=== PATIENT | male | born 1965 | race Caucasian/White ===

== ENCOUNTER 2017-11-07 15:49 | Inpatient (IN) | payer OTHER ==
[~2017-11-07] VITALS: Ht 180.3 cm; Wt 127.4 kg
[2017-11-07 16:03] VITALS: BP 132/98; PULSE 110; RESP 16; TEMP 98.9; O2SAT 98
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
[2017-11-07 17:55] VITALS: BP 136/90; PULSE 113; RESP 18; O2SAT 96
[2017-11-07] MEDS ORDERED: ONDANSETRON HCL 4 MG/2 ML VIAL IV PUSH ONE (18:30)
[2017-11-07] MEDS ORDERED: MORPHINE SULFATE 4 MG/ML INJ IV PUSH ONE (18:30)
[2017-11-07 18:43] LABS: AUTOMATED NEUTROPHIL # 19.5 TH/MM3 (1.8-7.7); BASOPHIL % 0.1 % (0.0-2.0); EOSINOPHIL % 0.1 % (0.0-4.0); HEMATOCRIT 46.4 % (39.0-51.0); HEMOGLOBIN 15.7 GM/DL (13.0-17.0); LYMPH % 5.8 % (9.0-44.0); LYMPHOCYTE # 1.3 TH/MM3 (1.0-4.8); MEAN CELL VOLUME 87.8 FL (80.0-100.0); MEAN CORPUSCULAR HEMOGLOBIN 29.7 PG (27.0-34.0); MEAN CORPUSCULAR HGB CONC 33.8 % (32.0-36.0); MEAN PLATELET VOLUME 9.5 FL (7.0-11.0); MONO % 6.9 % (0.0-8.0); MONOCYTE # 1.6 TH/MM3 (0-0.9); NEUT % 87.1 % (16.0-70.0); PLATELET COUNT 206 TH/MM3 (150-450); RED BLOOD COUNT 5.28 MIL/MM3 (4.50-5.90); WHITE BLOOD COUNT 22.5 TH/MM3 (4.0-11.0)
[2017-11-07 18:52] LABS: PROTHROMBIN TIME - PATIENT 10.2 SEC (9.8-11.6)
[2017-11-07 19:10] LABS: BICARBONATE 29.5 MEQ/L (21.0-32.0); CALCIUM 9.5 MG/DL (8.5-10.1); CREATININE 1.1 MG/DL (0.60-1.30)
[2017-11-07 19:27] VITALS: BP 160/88; PULSE 110; RESP 20; O2SAT 97
[2017-11-07] MEDS ORDERED: SODIUM CHLOR 0.9% 1000 ML INJ 1,000 ML IV ONE (19:30)
[2017-11-07] MEDS ORDERED: IOHEXOL 350 MG/ML 10 ML VIAL (for RAD DIAG) IVCONTRAST ONE (20:51)
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
[2017-11-07] MEDS ORDERED: MORPHINE SULFATE 2 MG/ML INJ IV PUSH PRN (21:15)
[2017-11-07] MEDS ORDERED: Post-op Orders (for Pharmacy) XX ONE (21:15)
[2017-11-07] MEDS ORDERED: ONDANSETRON HCL 4 MG/2 ML VIAL IV PUSH PRN (21:15)
[2017-11-07] MEDS ORDERED: NALOXONE HCL 0.4 MG/ML AMP IV PUSH PRN (21:15)
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
[2017-11-07] MEDS: SODIUM CHLOR 0.9% 1000 ML INJ 1,000 ML IV SCH (22:01)
[2017-11-07 22:51] VITALS: BP 143/87
[2017-11-07] MEDS: fentaNYL 75 MCG/HR PATCH T-DERMAL SCH (22:51)
[2017-11-07 23:00] VITALS: BP 148/99; PULSE 120; RESP 18; TEMP 97.9; O2SAT 95
[2017-11-07] MEDS: oxyCODONE/ACETAMINOPHEN 5 MG/325 MG TAB PO PRN (23:26)
[2017-11-07] MEDS: KETOROLAC TROMETHAMINE 60 MG/2 ML (IM) VIAL IM SCH (23:26)
[2017-11-07] MEDS: PANTOPRAZOLE SOD 40 MG DELAYED RELEASE TAB PO SCH (23:26)
[2017-11-08 04:30] VITALS: BP 139/89; PULSE 109; RESP 20; TEMP 98.9; O2SAT 94
[2017-11-08] MEDS: oxyCODONE/ACETAMINOPHEN 5 MG/325 MG TAB PO PRN ×2 (04:34→09:35)
[2017-11-08] MEDS: KETOROLAC TROMETHAMINE 60 MG/2 ML (IM) VIAL IM SCH (05:56)
[2017-11-08] MEDS: SODIUM CHLOR 0.9% 1000 ML INJ 1,000 ML IV SCH (06:04)
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
[2017-11-08 07:43] LABS: AUTOMATED NEUTROPHIL # 10.5 TH/MM3 (1.8-7.7); BASOPHIL % 0.2 % (0.0-2.0); EOSINOPHIL % 0.1 % (0.0-4.0); HEMATOCRIT 42.3 % (39.0-51.0); HEMOGLOBIN 14.3 GM/DL (13.0-17.0); LYMPH % 9.7 % (9.0-44.0); LYMPHOCYTE # 1.3 TH/MM3 (1.0-4.8); MEAN CELL VOLUME 88.5 FL (80.0-100.0); MEAN CORPUSCULAR HGB CONC 33.9 % (32.0-36.0); MEAN PLATELET VOLUME 9.2 FL (7.0-11.0); MONO % 10.5 % (0.0-8.0); MONOCYTE # 1.4 TH/MM3 (0-0.9); NEUT % 79.5 % (16.0-70.0); PLATELET COUNT 186 TH/MM3 (150-450); RED BLOOD COUNT 4.78 MIL/MM3 (4.50-5.90); RED CELL DISTRIBUTION WIDTH 13.6 % (11.6-17.2); WHITE BLOOD COUNT 13.2 TH/MM3 (4.0-11.0)
[2017-11-08 08:00] VITALS: BP_SYST 125; BP_SYST 143; BP_DIAS 72; BP_DIAS 87; PULSE 87; PULSE 90; RESP 16; TEMP 97.8; TEMP 98; O2SAT 93; O2SAT 95
[2017-11-08 08:43] LABS: BICARBONATE 27.2 MEQ/L (21.0-32.0); CALCIUM 8.2 MG/DL (8.5-10.1); CREATININE 1.09 MG/DL (0.60-1.30)
[2017-11-08] MEDS: SODIUM CHLORIDE 0.9% FLUSH 10 ML FLUSH IV FLUSH SCH ×2 (09:00→21:50)
[2017-11-08] MEDS: MAGNESIUM HYDROXIDE SUSP 30 ML CUP PO SCH ×2 (09:36→21:50)
[2017-11-08] MEDS: DOCUSATE SODIUM 100 MG CAP PO SCH ×2 (09:36→21:50)
[2017-11-08 12:00] VITALS: BP 141/81; PULSE 87; RESP 16; TEMP 97.6; O2SAT 95
[2017-11-08] MEDS ORDERED: KETOROLAC TROMETHAMINE 60 MG/2 ML (IM) VIAL IM SCH (12:00)
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
[2017-11-08] MEDS ORDERED: MORPHINE SULFATE 2 MG/ML INJ IV PUSH PRN (12:15)
[2017-11-08] MEDS: METHOCARBAMOL 500 MG TAB PO SCH ×2 (12:56→21:50)
[2017-11-08] MEDS: oxyCODONE/ACETAMINOPHEN 10 MG/325 MG TAB PO PRN ×2 (12:56→17:17)
[2017-11-08] MEDS: KETOROLAC TROMETHAMINE 30 MG/ML (IVP) VIAL IV PUSH SCH ×3 (12:58→23:37)
[2017-11-08 18:58] LABS: HEMATOCRIT 38.8 % (39.0-51.0); HEMOGLOBIN 13.1 GM/DL (13.0-17.0)
[2017-11-08 19:35] VITALS: BP 163/91; PULSE 87; RESP 20; TEMP 97.1; O2SAT 94
[2017-11-08] MEDS: PANTOPRAZOLE SOD 40 MG DELAYED RELEASE TAB PO SCH (21:50)
[2017-11-08] MEDS: SODIUM CHLORIDE 0.9% FLUSH 10 ML FLUSH IV FLUSH PRN (23:37)
[2017-11-08 23:45] VITALS: BP 140/75; PULSE 94; RESP 20; TEMP 97.8; O2SAT 95
[2017-11-09] MEDS: SODIUM CHLORIDE 0.9% FLUSH 10 ML FLUSH IV FLUSH PRN (05:49)
[2017-11-09] MEDS: METHOCARBAMOL 500 MG TAB PO SCH ×3 (05:49→23:00)
[2017-11-09] MEDS: KETOROLAC TROMETHAMINE 30 MG/ML (IVP) VIAL IV PUSH SCH ×4 (05:49→23:01)
--- NOTE | 2017-11-09 06:47 | RADRPT ---
EXAM DATE/TIME: 11/09/2017 05:52 [facility] COMPARISON: CHEST SINGLE AP, November 08, 2017, 3:47. INDICATIONS : Pain left chest, short of breath MEDICAL HISTORY : multiple left rib fractures SURGICAL HISTORY : None. ENCOUNTER: Subsequent ACUITY: 2 days PAIN SCORE: 8/10 LOCATION: Left chest FINDINGS: A single portable frontal view the chest shows slight worsening of the consolidation within the left base. Small left effusion is slightly larger. Right lung is clear. Small left pneumothorax is new. Ti ny amount of subcutaneous air overlies left chest. Multiple left-sided rib fractures. Heart is normal in size. CONCLUSION: 1. New small left pneumothorax. 2. Slight increase in size of a left pleural effusion and left basilar consolidation. Nikolay Cui Jr., MD on November 09, 2017 at 6:44 Board Certified Radiologist. This report was verified electronically.
[2017-11-09 08:00] VITALS: BP 136/84; PULSE 92; RESP 18; TEMP 98.8; O2SAT 92
[2017-11-09] MEDS: MAGNESIUM HYDROXIDE SUSP 30 ML CUP PO SCH ×2 (11:18→22:58)
[2017-11-09] MEDS: oxyCODONE/ACETAMINOPHEN 10 MG/325 MG TAB PO PRN ×2 (11:18→16:05)
[2017-11-09] MEDS: DOCUSATE SODIUM 100 MG CAP PO SCH ×2 (11:19→22:58)
[2017-11-09] MEDS: SODIUM CHLORIDE 0.9% FLUSH 10 ML FLUSH IV FLUSH SCH ×2 (11:19→23:01)
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
[2017-11-09 12:00] VITALS: BP 119/83; PULSE 101; RESP 18; TEMP 98.7; O2SAT 93
[2017-11-09 15:50] LABS: AUTOMATED NEUTROPHIL # 10.4 TH/MM3 (1.8-7.7); BASOPHIL % 0.2 % (0.0-2.0); EOSINOPHIL % 0.4 % (0.0-4.0); HEMATOCRIT 37.3 % (39.0-51.0); HEMOGLOBIN 12.5 GM/DL (13.0-17.0); LYMPH % 8.3 % (9.0-44.0); LYMPHOCYTE # 1.1 TH/MM3 (1.0-4.8); MEAN CORPUSCULAR HEMOGLOBIN 29.8 PG (27.0-34.0); MEAN CORPUSCULAR HGB CONC 33.5 % (32.0-36.0); MONO % 10.9 % (0.0-8.0); MONOCYTE # 1.4 TH/MM3 (0-0.9); NEUT % 80.2 % (16.0-70.0); PLATELET COUNT 128 TH/MM3 (150-450); RED BLOOD COUNT 4.19 MIL/MM3 (4.50-5.90); RED CELL DISTRIBUTION WIDTH 13.2 % (11.6-17.2)
[2017-11-09 16:00] VITALS: BP 135/86; PULSE 109; RESP 18; TEMP 97.6; O2SAT 92
[2017-11-09] MEDS ORDERED: LACTULOSE SYRUP 20 GM/30 ML CUP PO ONE (16:00)
[2017-11-09 16:11] LABS: BICARBONATE 32.7 MEQ/L (21.0-32.0); CALCIUM 8.3 MG/DL (8.5-10.1); CREATININE 0.9 MG/DL (0.60-1.30)
[2017-11-09 20:21] VITALS: BP 146/86; PULSE 98; RESP 17; TEMP 98.9; O2SAT 92
[2017-11-09] MEDS: PANTOPRAZOLE SOD 40 MG DELAYED RELEASE TAB PO SCH (23:00)
[2017-11-10] VITALS (7 sets, daily range): BP systolic 113–160; BP diastolic 65–82; PULSE 70–105; RESP 17–18; TEMP 96–99.5; O2SAT 92–98
[2017-11-10 04:41] LABS: AUTOMATED NEUTROPHIL # 11.4 TH/MM3 (1.8-7.7); BASOPHIL % 0.1 % (0.0-2.0); EOSINOPHIL # 0.1 TH/MM3 (0-0.4); EOSINOPHIL % 0.7 % (0.0-4.0); HEMATOCRIT 37.5 % (39.0-51.0); HEMOGLOBIN 12.7 GM/DL (13.0-17.0); LYMPH % 10.5 % (9.0-44.0); LYMPHOCYTE # 1.5 TH/MM3 (1.0-4.8); MEAN CELL VOLUME 89.6 FL (80.0-100.0); MEAN CORPUSCULAR HEMOGLOBIN 30.3 PG (27.0-34.0); MEAN CORPUSCULAR HGB CONC 33.8 % (32.0-36.0); MEAN PLATELET VOLUME 9.4 FL (7.0-11.0); MONO % 10.4 % (0.0-8.0); MONOCYTE # 1.5 TH/MM3 (0-0.9); NEUT % 78.3 % (16.0-70.0); PLATELET COUNT 138 TH/MM3 (150-450); RED BLOOD COUNT 4.19 MIL/MM3 (4.50-5.90); RED CELL DISTRIBUTION WIDTH 13.1 % (11.6-17.2); WHITE BLOOD COUNT 14.5 TH/MM3 (4.0-11.0)
[2017-11-10 05:05] LABS: BICARBONATE 30.1 MEQ/L (21.0-32.0); CALCIUM 8.7 MG/DL (8.5-10.1); CREATININE 0.92 MG/DL (0.60-1.30)
--- NOTE | 2017-11-10 06:39 | RADRPT ---
EXAM DATE/TIME: 11/10/2017 05:50 [facility] COMPARISON: CHEST SINGLE AP, November 09, 2017, 5:52. INDICATIONS : Pain left chest and ribs, short of breath MEDICAL HISTORY : multiple left rib fractures SURGICAL HISTORY : None. ENCOUNTER: Subsequent ACUITY: 3 days PAIN SCORE: 8/10 LOCATION: Left chest FINDINGS: A single portable frontal view the chest shows a stable small left apical pneumothorax. A left lower lobe consolidation and small left pleural effusion are stable. Right lung is clear. Heart is normal i n size. CONCLUSION: 1. Stable left apical pneumothorax. 2. Stable left pleural effusion and left lower lobe infiltrate. Nikolay Cui Jr., MD on November 10, 2017 at 6:37 Board Certified Radiologist. This report was verified electronically.
[2017-11-10] MEDS ORDERED: MAGN30S PO (07:40)
[2017-11-10] MEDS ORDERED: DOCU1CAP39 PO (07:40)
[2017-11-10] MEDS ORDERED: WALKER WHEELS/F1 MIS (07:42)
[2017-11-10] MEDS: METHOCARBAMOL 500 MG TAB PO SCH ×2 (07:44→12:10)
[2017-11-10] MEDS: KETOROLAC TROMETHAMINE 30 MG/ML (IVP) VIAL IV PUSH SCH ×3 (07:44→17:51)
[2017-11-10] MEDS: DOCUSATE SODIUM 100 MG CAP PO SCH ×2 (08:08→20:59)
[2017-11-10] MEDS: SODIUM CHLORIDE 0.9% FLUSH 10 ML FLUSH IV FLUSH SCH ×2 (08:08→21:00)
[2017-11-10] MEDS: MAGNESIUM HYDROXIDE SUSP 30 ML CUP PO SCH ×2 (08:08→20:59)
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
[2017-11-10] MEDS: oxyCODONE/ACETAMINOPHEN 10 MG/325 MG TAB PO PRN ×3 (12:10→20:58)
[2017-11-10] MEDS: LACTULOSE SYRUP 20 GM/30 ML CUP PO SCH (13:15)
--- NOTE | 2017-11-10 17:13 | RADRPT ---
EXAM DATE/TIME: 11/10/2017 16:46 [facility] COMPARISON: None. INDICATIONS : <<Short of breath, possible retain hemothorax.>> RADIATION DOSE: <<9.59>> CTDIvol (mGy) MEDICAL HISTORY : Chronic obstructive pulmonary disease. Rib fractures. SURGICAL HISTORY : None. ENCOUNTER: Initial ACUITY: 3 days PAIN SCALE: 10/10 LOCATION: Left chest upper region. TECHNIQUE: Volumetric scanning of the chest was performed. Using automated exposure control and adjustment of t he mA and/or kV according to patient size, radiation dose was kept as low as reasonably achievable to obtain optimal diagnostic quality images. DICOM format image data is available electronically for r eview and comparison. Follow-up recommendations for detected pulmonary nodules are based at a minimum on nodule size and pa tient risk factors according to Fleischner Society Guidelines. FINDINGS: Comparison is November 07. Again seen is a small left-sided pneumothorax, relatively stable. There is a moderate-sized pleural effusion, possibly a hemothorax as increased in size slightly since November 07. There are numerous left-sided rib fractures including segmental rib fractures in the mid and lower le ft chest that could represent a flail segment. Right lung is relatively clear except for minimal basilar atelectasis. Trace pericardial fluid. Mild left perinephric stranding. CONCLUSION: 1. Multiple single and segmental left-sided rib fractures with slight increase in size of left pleura l effusion since November 07, either sympathetic effusion or a small hemothorax. Small pneumothorax is r elatively stable. Trace pericardial fluid. Dewey Brunner MD on November 10, 2017 at 17:07 Board Certified Radiologist. This report was verified electronically.
[2017-11-10] MEDS: ENOXAPARIN SODIUM 30 MG/0.3 ML SYRINGE SQ SCH (21:00)
[2017-11-10] MEDS: REMOVE OLD PATCH T-DERMAL SCH (22:00)
[2017-11-11] VITALS (7 sets, daily range): BP systolic 121–144; BP diastolic 68–88; PULSE 87–125; RESP 16–20; TEMP 91.7–98; O2SAT 93–98
[2017-11-11] MEDS: fentaNYL 75 MCG/HR PATCH T-DERMAL SCH (00:16)
[2017-11-11] MEDS: PANTOPRAZOLE SOD 40 MG DELAYED RELEASE TAB PO SCH ×2 (00:17→20:06)
[2017-11-11] MEDS: METHOCARBAMOL 500 MG TAB PO SCH ×4 (00:17→20:06)
[2017-11-11] MEDS: KETOROLAC TROMETHAMINE 30 MG/ML (IVP) VIAL IV PUSH SCH ×5 (00:17→23:56)
[2017-11-11] MEDS: oxyCODONE/ACETAMINOPHEN 10 MG/325 MG TAB PO PRN ×3 (01:45→16:13)
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
[2017-11-11] MEDS: MAGNESIUM HYDROXIDE SUSP 30 ML CUP PO SCH ×2 (09:46→20:07)
[2017-11-11] MEDS: DOCUSATE SODIUM 100 MG CAP PO SCH ×2 (09:46→20:06)
[2017-11-11] MEDS: ENOXAPARIN SODIUM 30 MG/0.3 ML SYRINGE SQ SCH ×2 (09:46→20:06)
[2017-11-11] MEDS: LACTULOSE SYRUP 20 GM/30 ML CUP PO SCH (09:46)
[2017-11-11] MEDS: SODIUM CHLORIDE 0.9% FLUSH 10 ML FLUSH IV FLUSH SCH ×2 (09:49→20:07)
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
[2017-11-12 00:35] VITALS: BP 139/69; PULSE 108; RESP 18; TEMP 96.9; O2SAT 94
[2017-11-12 04:02] LABS: AUTOMATED NEUTROPHIL # 11.3 TH/MM3 (1.8-7.7); BASOPHIL # 0.1 TH/MM3 (0-0.2); BASOPHIL % 0.4 % (0.0-2.0); EOSINOPHIL # 0.1 TH/MM3 (0-0.4); EOSINOPHIL % 0.7 % (0.0-4.0); HEMOGLOBIN 8.5 GM/DL (13.0-17.0); LYMPH % 12.5 % (9.0-44.0); LYMPHOCYTE # 1.9 TH/MM3 (1.0-4.8); MEAN CORPUSCULAR HEMOGLOBIN 29.7 PG (27.0-34.0); MEAN CORPUSCULAR HGB CONC 34.1 % (32.0-36.0); MEAN PLATELET VOLUME 9.9 FL (7.0-11.0); MONO % 11.2 % (0.0-8.0); MONOCYTE # 1.7 TH/MM3 (0-0.9); NEUT % 75.2 % (16.0-70.0); PLATELET COUNT 155 TH/MM3 (150-450); RED BLOOD COUNT 2.88 MIL/MM3 (4.50-5.90); RED CELL DISTRIBUTION WIDTH 12.9 % (11.6-17.2)
[2017-11-12 04:33] LABS: ALT (GPT) 43 U/L (12-78); AST (GOT) 23 U/L (15-37); BICARBONATE 30.7 MEQ/L (21.0-32.0); BLOOD UREA NITROGEN 43 MG/DL (7-18); CALCIUM 7.9 MG/DL (8.5-10.1); CHLORIDE 92 MEQ/L (98-107); CREATININE 1.13 MG/DL (0.60-1.30); GLOMERULAR FILTRATION RATE 68 ML/MIN (>89); GLUCOSE,RANDOM 133 MG/DL (74-106); SODIUM (NA) 131 MEQ/L (136-145)
[2017-11-12 04:37] LABS: ALKALINE PHOSPHATASE 49 U/L (45-117); TOTAL PROTEIN 6.3 GM/DL (6.4-8.2)
[2017-11-12] MEDS: KETOROLAC TROMETHAMINE 30 MG/ML (IVP) VIAL IV PUSH SCH ×3 (05:46→17:29)
[2017-11-12] MEDS: METHOCARBAMOL 500 MG TAB PO SCH ×3 (05:46→22:12)
--- NOTE | 2017-11-12 07:37 | RADRPT ---
EXAM DATE/TIME: 11/12/2017 06:26 [facility] COMPARISON: CT THORAX W/O CONTRAST, November 10, 2017, 16:46. CHEST SINGLE AP, November 11 18, 6:34. INDICATIONS : Pain left chest and ribs MEDICAL HISTORY : Chronic obstructive pulmonary disease. rib fractures SURGICAL HISTORY : None. ENCOUNTER: Subsequent ACUITY: 4 - 6 days PAIN SCORE: 7/10 LOCATION: Bilateral chest FINDINGS: Redemonstration of multiple left-sided rib fractures with small left hemothorax and associated basila r airspace consolidation. Very subtle apical pneumothorax not as well-demonstrated on current radiogr aph. Cardiomediastinal contours are stable. Remainder of the exam is unchanged. CONCLUSION: 1. Redemonstration of left-sided rib fractures with stable small left hemothorax and associated basil ar airspace consolidation. 2. Subtle left apical pneumothorax not as well demonstrated on current study. Jose Patel MD on November 12, 2017 at 7:32 Board Certified Radiologist. This report was verified electronically.
[2017-11-12] MEDS: DOCUSATE SODIUM 100 MG CAP PO SCH ×2 (08:05→22:12)
[2017-11-12] MEDS: MAGNESIUM HYDROXIDE SUSP 30 ML CUP PO SCH ×2 (08:05→22:12)
[2017-11-12] MEDS: LACTULOSE SYRUP 20 GM/30 ML CUP PO SCH (08:05)
[2017-11-12] MEDS: ENOXAPARIN SODIUM 30 MG/0.3 ML SYRINGE SQ SCH ×2 (08:05→22:11)
[2017-11-12 08:06] VITALS: BP 119/69; PULSE 107; RESP 20; TEMP 99.3; O2SAT 94
[2017-11-12] MEDS: SODIUM CHLORIDE 0.9% FLUSH 10 ML FLUSH IV FLUSH SCH ×2 (08:06→22:18)
[2017-11-12] MEDS: oxyCODONE/ACETAMINOPHEN 10 MG/325 MG TAB PO PRN (08:58)
[2017-11-12 11:52] VITALS: BP 120/74; PULSE 106; RESP 18; TEMP 98; O2SAT 94
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
[2017-11-12] MEDS: GABAPENTIN 300 MG CAP PO SCH ×2 (13:05→17:29)
[2017-11-12 14:57] VITALS: BP 141/73; PULSE 107; RESP 18; TEMP 97.6; O2SAT 94
[2017-11-12 20:00] VITALS: PULSE 105; RESP 18; TEMP 99.7; O2SAT 97
[2017-11-12 21:30] LABS: HEMATOCRIT 21.7 % (39.0-51.0); HEMOGLOBIN 7.4 GM/DL (13.0-17.0)
[2017-11-12] MEDS: PANTOPRAZOLE SOD 40 MG DELAYED RELEASE TAB PO SCH (22:12)
[2017-11-13] VITALS (17 sets, daily range): BP systolic 134–154; BP diastolic 60–88; PULSE 101–112; RESP 16–20; TEMP 97.9–100.3; O2SAT 92–95
[2017-11-13] MEDS: KETOROLAC TROMETHAMINE 30 MG/ML (IVP) VIAL IV PUSH SCH ×2 (00:09→06:02)
[2017-11-13 04:46] LABS: AUTOMATED NEUTROPHIL # 8.8 TH/MM3 (1.8-7.7); BASOPHIL % 0.3 % (0.0-2.0); EOSINOPHIL # 0.3 TH/MM3 (0-0.4); EOSINOPHIL % 2.3 % (0.0-4.0); HEMOGLOBIN 7.2 GM/DL (13.0-17.0); LYMPH % 14.5 % (9.0-44.0); LYMPHOCYTE # 1.8 TH/MM3 (1.0-4.8); MEAN CELL VOLUME 87.9 FL (80.0-100.0); MEAN CORPUSCULAR HEMOGLOBIN 30.3 PG (27.0-34.0); MEAN CORPUSCULAR HGB CONC 34.5 % (32.0-36.0); MEAN PLATELET VOLUME 9.8 FL (7.0-11.0); MONO % 11.4 % (0.0-8.0); MONOCYTE # 1.4 TH/MM3 (0-0.9); NEUT % 71.5 % (16.0-70.0); PLATELET COUNT 150 TH/MM3 (150-450); RED BLOOD COUNT 2.39 MIL/MM3 (4.50-5.90); RED CELL DISTRIBUTION WIDTH 12.6 % (11.6-17.2); WHITE BLOOD COUNT 12.3 TH/MM3 (4.0-11.0)
[2017-11-13] MEDS: oxyCODONE/ACETAMINOPHEN 5 MG/325 MG TAB PO PRN (05:08)
[2017-11-13] MEDS: METHOCARBAMOL 500 MG TAB PO SCH ×3 (06:01→22:07)
[2017-11-13] MEDS: SODIUM CHLORIDE 0.9% FLUSH 10 ML FLUSH IV FLUSH PRN (06:02)
[2017-11-13 07:18] LABS: BANDS 3 % (0-6); LYMPHOCYTES 16 % (9-44); MONOCYTES 8 % (0-8); MYELOCYTES 1 % (0-0); NEUTROPHIL # MANUAL DIFF 8.9 TH/MM3 (1.8-7.7); POLYS (SEG NEUTROPHILS) 68 % (16-70)
[2017-11-13] MEDS ORDERED: SODIUM CHLOR 0.9% 250 ML INJ 250 ML IV ONE (07:45)
--- NOTE | 2017-11-13 07:58 | RADRPT ---
EXAM DATE/TIME: 11/13/2017 06:49 [facility] COMPARISON: CHEST SINGLE AP, November 12, 2017, 6:26. INDICATIONS : Short of breath MEDICAL HISTORY : Chronic obstructive pulmonary disease. rib fracture SURGICAL HISTORY : None. ENCOUNTER: Subsequent ACUITY: 4 - 6 days PAIN SCORE: 4/10 LOCATION: Bilateral chest FINDINGS: Significant airspace disease remains evident of the left lung. There is left basilar opacity characte ristic of an associated effusion as well. The right lung remains clear. Heart and mediastinal structures are stable. Left-sided rib fractures again noted. CONCLUSION: Persistent left lung airspace disease and suspected pleural effusion. No evidence of pneumothorax. Left-sided rib fractures Carlo Orellana MD on November 13, 2017 at 7:56 Board Certified Radiologist. This report was verified electronically.
[2017-11-13] MEDS: GABAPENTIN 300 MG CAP PO SCH ×3 (08:37→17:56)
[2017-11-13] MEDS: ENOXAPARIN SODIUM 30 MG/0.3 ML SYRINGE SQ SCH (08:38)
[2017-11-13] MEDS: DOCUSATE SODIUM 100 MG CAP PO SCH ×2 (08:42→22:07)
[2017-11-13] MEDS: LACTULOSE SYRUP 20 GM/30 ML CUP PO SCH (08:42)
[2017-11-13] MEDS: SODIUM CHLORIDE 0.9% FLUSH 10 ML FLUSH IV FLUSH SCH ×2 (08:42→22:06)
[2017-11-13] MEDS: MAGNESIUM HYDROXIDE SUSP 30 ML CUP PO SCH ×2 (08:43→21:45)
[2017-11-13] MEDS ORDERED: IOHEXOL 350 MG/ML 10 ML VIAL (for RAD DIAG) IVCONTRAST ONE (08:54)
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
[2017-11-13] MEDS ORDERED: VERAPAMIL HCL 5 MG/2 ML VIAL ONE (10:33)
[2017-11-13] MEDS ORDERED: MIDAZOLAM HCL 2 MG/2 ML VIAL ONE (10:37)
[2017-11-13] MEDS ORDERED: fentaNYL CITRATE 250 MCG/5 ML AMP ONE (10:38)
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
[2017-11-13] MEDS: SODIUM CHLOR 0.9% 1000 ML INJ 1,000 ML IV SCH (17:56)
[2017-11-13 21:21] LABS: HEMATOCRIT 22.6 % (39.0-51.0); HEMOGLOBIN 8.3 GM/DL (13.0-17.0)
[2017-11-13] MEDS: REMOVE OLD PATCH T-DERMAL SCH (22:00)
[2017-11-13] MEDS: PANTOPRAZOLE SOD 40 MG DELAYED RELEASE TAB PO SCH (22:07)
[2017-11-13] MEDS: fentaNYL 75 MCG/HR PATCH T-DERMAL SCH (22:08)
[2017-11-13] MEDS: oxyCODONE/ACETAMINOPHEN 10 MG/325 MG TAB PO PRN (22:08)
[2017-11-13] MEDS ORDERED: ACETAMINOPHEN 325 MG TAB PO ONE (23:45)
[2017-11-13] MEDS ORDERED: diphenhydrAMINE HCL 25 MG CAP PO ONE (23:45)
[2017-11-14] VITALS (10 sets, daily range): BP systolic 137–161; BP diastolic 70–88; PULSE 91–109; RESP 18–21; TEMP 96.2–99.8; O2SAT 94–96
[2017-11-14] MEDS: SODIUM CHLOR 0.9% 1000 ML INJ 1,000 ML IV SCH ×2 (05:10→16:42)
[2017-11-14] MEDS: METHOCARBAMOL 500 MG TAB PO SCH ×3 (05:48→21:56)
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
[2017-11-14 06:57] LABS: BASOPHIL # 0.1 TH/MM3 (0-0.2); BASOPHIL % 0.4 % (0.0-2.0); EOSINOPHIL # 0.1 TH/MM3 (0-0.4); EOSINOPHIL % 0.9 % (0.0-4.0); HEMATOCRIT 24.9 % (39.0-51.0); HEMOGLOBIN 8.6 GM/DL (13.0-17.0); LYMPH % 7.8 % (9.0-44.0); LYMPHOCYTE # 1.2 TH/MM3 (1.0-4.8); MEAN CELL VOLUME 86.7 FL (80.0-100.0); MEAN CORPUSCULAR HEMOGLOBIN 30.1 PG (27.0-34.0); MEAN CORPUSCULAR HGB CONC 34.7 % (32.0-36.0); MEAN PLATELET VOLUME 9.5 FL (7.0-11.0); MONO % 12.6 % (0.0-8.0); MONOCYTE # 1.9 TH/MM3 (0-0.9); NEUT % 78.3 % (16.0-70.0); PLATELET COUNT 165 TH/MM3 (150-450); RED BLOOD COUNT 2.87 MIL/MM3 (4.50-5.90); RED CELL DISTRIBUTION WIDTH 13.7 % (11.6-17.2); WHITE BLOOD COUNT 15.4 TH/MM3 (4.0-11.0)
[2017-11-14 07:17] LABS: ALBUMIN 2.7 GM/DL (3.4-5.0); BICARBONATE 30.6 MEQ/L (21.0-32.0); CALCIUM 7.4 MG/DL (8.5-10.1); CALCIUM-PROTEIN CORRECTED 7.8 MG/DL (8.5-10.1); CREATININE 0.76 MG/DL (0.60-1.30); TOTAL PROTEIN 6.4 GM/DL (6.4-8.2)
[2017-11-14 08:53] LABS: BANDS 5 % (0-6); BASOPHILS 1 % (0-2); CORRECTED NUCLEATED RBC 1 /100 WBC (0-0); LYMPHOCYTES 8 % (9-44); METAMYELOCYTES 3 % (0-1); MONOCYTES 7 % (0-8); MYELOCYTES 1 % (0-0); NEUTROPHIL # MANUAL DIFF 12.5 TH/MM3 (1.8-7.7); NUCLEATED RED BLOOD CELL 1 (0-0); POLYS (SEG NEUTROPHILS) 72 % (16-70)
[2017-11-14] MEDS: MAGNESIUM HYDROXIDE SUSP 30 ML CUP PO SCH ×2 (09:00→20:58)
[2017-11-14] MEDS: LACTULOSE SYRUP 20 GM/30 ML CUP PO SCH (09:00)
[2017-11-14] MEDS: SODIUM CHLORIDE 0.9% FLUSH 10 ML FLUSH IV FLUSH SCH ×2 (09:00→20:58)
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
[2017-11-14] MEDS: GABAPENTIN 300 MG CAP PO SCH ×3 (11:08→16:41)
[2017-11-14] MEDS: DOCUSATE SODIUM 100 MG CAP PO SCH ×2 (11:09→20:58)
[2017-11-14] MEDS: oxyCODONE/ACETAMINOPHEN 10 MG/325 MG TAB PO PRN ×2 (11:10→16:42)
[2017-11-14] MEDS: ENOXAPARIN SODIUM 30 MG/0.3 ML SYRINGE SQ SCH ×2 (11:10→20:57)
[2017-11-14] MEDS: PANTOPRAZOLE SOD 40 MG DELAYED RELEASE TAB PO SCH (21:56)
[2017-11-15] VITALS: BP 149/81; PULSE 103; RESP 20; TEMP 98.3; O2SAT 95
[2017-11-15] MEDS: oxyCODONE/ACETAMINOPHEN 10 MG/325 MG TAB PO PRN ×2 (04:51→22:04)
[2017-11-15] MEDS: SODIUM CHLOR 0.9% 1000 ML INJ 1,000 ML IV SCH (05:00)
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
[2017-11-15] MEDS: METHOCARBAMOL 500 MG TAB PO SCH ×3 (06:20→22:03)
[2017-11-15 08:00] VITALS: BP 154/83; PULSE 91; RESP 19; TEMP 96.4; O2SAT 96
[2017-11-15] MEDS: GABAPENTIN 300 MG CAP PO SCH ×3 (08:50→16:28)
[2017-11-15] MEDS: DOCUSATE SODIUM 100 MG CAP PO SCH ×2 (08:50→20:12)
[2017-11-15] MEDS: LACTULOSE SYRUP 20 GM/30 ML CUP PO SCH (08:51)
[2017-11-15] MEDS: ENOXAPARIN SODIUM 30 MG/0.3 ML SYRINGE SQ SCH ×2 (08:51→20:11)
[2017-11-15] MEDS: SODIUM CHLORIDE 0.9% FLUSH 10 ML FLUSH IV FLUSH SCH ×2 (08:51→20:10)
[2017-11-15] MEDS: MAGNESIUM HYDROXIDE SUSP 30 ML CUP PO SCH ×2 (08:51→20:11)
[2017-11-15 09:28] LABS: AUTOMATED NEUTROPHIL # 11.8 TH/MM3 (1.8-7.7); BASOPHIL % 0.2 % (0.0-2.0); EOSINOPHIL # 0.2 TH/MM3 (0-0.4); EOSINOPHIL % 1.3 % (0.0-4.0); HEMATOCRIT 25.5 % (39.0-51.0); LYMPH % 6.9 % (9.0-44.0); MEAN CELL VOLUME 87.1 FL (80.0-100.0); MEAN CORPUSCULAR HEMOGLOBIN 30.5 PG (27.0-34.0); MEAN CORPUSCULAR HGB CONC 35.1 % (32.0-36.0); MEAN PLATELET VOLUME 9.2 FL (7.0-11.0); MONO % 10.9 % (0.0-8.0); MONOCYTE # 1.6 TH/MM3 (0-0.9); NEUT % 80.7 % (16.0-70.0); PLATELET COUNT 209 TH/MM3 (150-450); RED BLOOD COUNT 2.93 MIL/MM3 (4.50-5.90); RED CELL DISTRIBUTION WIDTH 13.5 % (11.6-17.2); WHITE BLOOD COUNT 14.6 TH/MM3 (4.0-11.0)
[2017-11-15 09:51] LABS: ALBUMIN 2.7 GM/DL (3.4-5.0); AST (GOT) 31 U/L (15-37); BICARBONATE 27.3 MEQ/L (21.0-32.0); BLOOD UREA NITROGEN 24 MG/DL (7-18); CALCIUM 8.1 MG/DL (8.5-10.1); CHLORIDE 93 MEQ/L (98-107); CREATININE 0.72 MG/DL (0.60-1.30); GLOMERULAR FILTRATION RATE 114 ML/MIN (>89); GLUCOSE,RANDOM 101 MG/DL (74-106); SODIUM (NA) 130 MEQ/L (136-145)
[2017-11-15 09:52] LABS: ALT (GPT) 47 U/L (12-78)
[2017-11-15 09:54] LABS: ALKALINE PHOSPHATASE 64 U/L (45-117); TOTAL BILIRUBIN ADULT 2.6 MG/DL (0.2-1.0); TOTAL PROTEIN 6.6 GM/DL (6.4-8.2)
[2017-11-15 10:45] LABS: BANDS 2 % (0-6); LYMPHOCYTES 8 % (9-44); METAMYELOCYTES 1 % (0-1); MONOCYTES 6 % (0-8); MYELOCYTES 1 % (0-0); NEUTROPHIL # MANUAL DIFF 12.3 TH/MM3 (1.8-7.7); POLYS (SEG NEUTROPHILS) 80 % (16-70)
[2017-11-15 12:00] VITALS: BP 156/83; PULSE 96; RESP 18; TEMP 96.4; O2SAT 93
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
[2017-11-15] MEDS: oxyCODONE/ACETAMINOPHEN 5 MG/325 MG TAB PO PRN ×2 (13:17→18:09)
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
[2017-11-15 16:00] VITALS: BP 142/77; PULSE 106; RESP 19; TEMP 96.5; O2SAT 92
[2017-11-15] MEDS ORDERED: fentaNYL 50 MCG/HR PATCH T-DERMAL SCH (16:00)
[2017-11-15 20:00] VITALS: BP 151/87; PULSE 99; RESP 17; TEMP 99.8; O2SAT 92
[2017-11-15] MEDS: PANTOPRAZOLE SOD 40 MG DELAYED RELEASE TAB PO SCH (22:03)
[2017-11-16] VITALS: BP 146/83; PULSE 100; RESP 16; TEMP 99; O2SAT 96
[2017-11-16] MEDS: oxyCODONE/ACETAMINOPHEN 10 MG/325 MG TAB PO PRN ×4 (04:33→21:41)
[2017-11-16 04:50] LABS: AUTOMATED NEUTROPHIL # 10.1 TH/MM3 (1.8-7.7); BASOPHIL % 0.3 % (0.0-2.0); EOSINOPHIL # 0.2 TH/MM3 (0-0.4); EOSINOPHIL % 1.6 % (0.0-4.0); HEMATOCRIT 25.9 % (39.0-51.0); HEMOGLOBIN 8.9 GM/DL (13.0-17.0); LYMPH % 8.2 % (9.0-44.0); MEAN CELL VOLUME 87.6 FL (80.0-100.0); MEAN CORPUSCULAR HGB CONC 34.3 % (32.0-36.0); MEAN PLATELET VOLUME 8.7 FL (7.0-11.0); MONO % 10.8 % (0.0-8.0); MONOCYTE # 1.4 TH/MM3 (0-0.9); NEUT % 79.1 % (16.0-70.0); PLATELET COUNT 234 TH/MM3 (150-450); RED BLOOD COUNT 2.96 MIL/MM3 (4.50-5.90); RED CELL DISTRIBUTION WIDTH 13.2 % (11.6-17.2); WHITE BLOOD COUNT 12.7 TH/MM3 (4.0-11.0)
[2017-11-16] MEDS: METHOCARBAMOL 500 MG TAB PO SCH ×3 (06:12→21:40)
[2017-11-16 06:44] LABS: BANDS 2 % (0-6); LYMPHOCYTES 5 % (9-44); METAMYELOCYTES 1 % (0-1); MONOCYTES 6 % (0-8); MYELOCYTES 2 % (0-0); NEUTROPHIL # MANUAL DIFF 10.9 TH/MM3 (1.8-7.7); POLYS (SEG NEUTROPHILS) 81 % (16-70)
--- NOTE | 2017-11-16 07:11 | RADRPT ---
EXAM DATE/TIME: 11/16/2017 06:02 [facility] COMPARISON: CHEST SINGLE AP, November 15, 2017, 5:04. INDICATIONS : Short of breath, left rib pain MEDICAL HISTORY : Chronic obstructive pulmonary disease. SURGICAL HISTORY : None. ENCOUNTER: Subsequent ACUITY: 1 week PAIN SCORE: 4/10 LOCATION: Bilateral chest FINDINGS: Persistent left lower lung consolidation with loss of delineation of the entire left hemidiaphragm. Right lung is clear. The heart is normal size. Multiple left lateral rib fractures. No evidence of pneumothorax. CONCLUSION: Persistent left lower lobe consolidation. Nikolay Lebron MD on November 16, 2017 at 7:09 Board Certified Radiologist. This report was verified electronically.
[2017-11-16 07:59] VITALS: BP 151/87; PULSE 91; RESP 17; TEMP 98.2; O2SAT 98
[2017-11-16] MEDS: LACTULOSE SYRUP 20 GM/30 ML CUP PO SCH (09:00)
[2017-11-16] MEDS: MAGNESIUM HYDROXIDE SUSP 30 ML CUP PO SCH ×2 (09:00→21:00)
[2017-11-16] MEDS: ENOXAPARIN SODIUM 30 MG/0.3 ML SYRINGE SQ SCH ×2 (09:02→21:42)
[2017-11-16] MEDS: DOCUSATE SODIUM 100 MG CAP PO SCH ×2 (09:02→21:41)
[2017-11-16] MEDS: GABAPENTIN 300 MG CAP PO SCH ×3 (09:02→17:51)
[2017-11-16] MEDS: SODIUM CHLORIDE 0.9% FLUSH 10 ML FLUSH IV FLUSH SCH ×2 (09:06→21:47)
[2017-11-16 11:55] VITALS: BP 155/93; PULSE 90; RESP 17; TEMP 97.9; O2SAT 94
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
[2017-11-16] MEDS ORDERED: NEUR300C PO (15:50)
[2017-11-16] MEDS ORDERED: OXYC1TAB63 PO (15:50)
[2017-11-16] MEDS ORDERED: METH500T3 PO (15:50)
[2017-11-16 15:56] VITALS: BP 155/89; PULSE 96; RESP 17; TEMP 98.3; O2SAT 93
[2017-11-16 20:00] VITALS: BP 147/95; PULSE 98; RESP 18; TEMP 99.4; O2SAT 93
[2017-11-16] MEDS: PANTOPRAZOLE SOD 40 MG DELAYED RELEASE TAB PO SCH (21:41)
[2017-11-17] VITALS: BP 157/98; PULSE 104; RESP 21; TEMP 99; O2SAT 96
[2017-11-17 04:00] VITALS: BP 149/82; PULSE 99; RESP 18; TEMP 99.8; O2SAT 94
[2017-11-17 04:51] LABS: HEMATOCRIT 26.3 % (39.0-51.0); HEMOGLOBIN 8.8 GM/DL (13.0-17.0)
[2017-11-17] MEDS: METHOCARBAMOL 500 MG TAB PO SCH (06:12)
[2017-11-17 08:00] VITALS: BP 156/77; PULSE 99; RESP 16; TEMP 99.8; O2SAT 92
[2017-11-17] MEDS: GABAPENTIN 300 MG CAP PO SCH (08:30)
[2017-11-17] MEDS: DOCUSATE SODIUM 100 MG CAP PO SCH (08:30)
[2017-11-17] MEDS: LACTULOSE SYRUP 20 GM/30 ML CUP PO SCH (08:30)
[2017-11-17] MEDS: ENOXAPARIN SODIUM 30 MG/0.3 ML SYRINGE SQ SCH (08:30)
[2017-11-17] MEDS: MAGNESIUM HYDROXIDE SUSP 30 ML CUP PO SCH (08:31)
[2017-11-17] MEDS: SODIUM CHLORIDE 0.9% FLUSH 10 ML FLUSH IV FLUSH SCH (08:36)
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
== END 2017-11-17 12:55 | disposition home health service (06) | DRG 964 ==
LOC: NEPE 15:49 → NEDA 21:41 → N06B 22:55
PROVIDERS: ADMIT Surgery; ATTEND Surgery
PROC: B4171ZZ Fluoroscopy of Left Renal Artery using Low Osmolar Contrast (ICD-10-PCS; principal; 2017-11-13)
PROC: 30233N1 Transfusion of Nonautologous Red Blood Cells into Peripheral Vein, Percutaneous Approach (ICD-10-PCS; 2017-11-13)
DX: S22.42XA Multiple fractures of ribs, left side, initial encounter for closed fracture (principal); S27.2XXA Traumatic hemopneumothorax, initial encounter; S36.029A Unspecified contusion of spleen, initial encounter; J98.11 Atelectasis; J90 Pleural effusion, not elsewhere classified; S37.002A Unspecified injury of left kidney, initial encounter; K42.9 Umbilical hernia without obstruction or gangrene; J44.9 Chronic obstructive pulmonary disease, unspecified; V28.4XXA Motorcycle driver injured in noncollision transport accident in traffic accident, initial encounter; Y92.410 Unspecified street and highway as the place of occurrence of the external cause
CPT/HCPCS: 36251; 36430; 70450; 71045; 71046; 71250; 71260; 72125; 72129; 72132; 74177; 76937; 80048; 80053; 85007; 85014; 85018; 85025; 85027; 85610; 85730; 86850; 86900; 86901; 86920; 94150; 94667; 94668; 96361; 96374; 96375; 96376; 99152; 99153; C1769; C1887; C1894; J1650; J1885; J2250; J2270; J2405; J3010; J7030; J7050; P9016; Q9967